=== PATIENT | male | born 1960 | race Caucasian/White ===

== ENCOUNTER → 2019-10-20 | Outpatient (CLI) | payer MEDICARE, OTHER ==
[~2019-10-20] MED LIST: APEDRA PO; APIDRA100 U/ML SUBQ; ASPIRIN EC81 M1 PO; ASPIRIN325 PO; ATORVASTATIN CA40 MG PO; BRILINTA60 MG PO; COREG25 MG PO; CYMBALTA30 MG PO; LANTUS100 UNIT/M SUBQ; LIPITOR 20 MG T20 M1 PO; NOVOLOG100 UNIT/1 SUBQ; PRINIVIL20 MG PO
--- NOTE | 2019-10-20 12:56 | 2DMMODE ---
[place] [address] 2 D/M-MODE ECHOCARDIOGRAM Name: JONO PETIT Room: [facility]#: [id number] Admission: 10/20/19 Attend Phys: Oracio Palomino, Discharge: Date of : 60 Date of Service: 10/20/19 1255 Report #: [id number] THIS REPORT FOR: //name// APPROVED REPORT Study performed: 10/20/2019 11:08:02 EXAM: Comprehensive 2D, Doppler, and color-flow Echocardiogram Patient Location: Out-Patient BSA: 2.21 HR: 69 bpm BP: 130/80 mmHg Other Information Study Quality: Good Indications CAD Hypertension/HDD 2D Dimensions IVSd: 20.64 (7-11mm) LVOT Diam: 20.80 (18-24mm) LVDd: 41.78 mm PWd: 11.40 (7-11mm) Ascending Ao: 35.83 (22-36mm) LVDs: 29.28 (25-40mm) Aortic Root: 31.68 mm Volumes Left Atrial Volume (Systole) LA ESV Index: 27.30 mL/m2 Aortic Valve AoV Peak Gabe.: 1.08 m/s AO Peak Gr.: 4.68 mmHg LVOT Max P.33 mmHg AO Mean Gr.: 2.73 mmHg LVOT Mean P.94 mmHg LVOT Max V: 1.04 m/s AO V2 VTI: 21.50 cm LVOT Mean V: 0.62 m/s EMI (VTI): 3.43 cm2 LVOT V1 VTI: 21.71 cm Mitral Valve E/A Ratio: 0.69 MV Decel. Time: 269.35 ms MV E Max Gabe.: 0.51 m/s MV PHT: 78.11 [place] [address] 2 D/M-MODE ECHOCARDIOGRAM Name: JONO PETIT Room: [facility]#: [id number] Admission: 10/20/19 Attend Phys: Oracio Palomino, Discharge: Date of : 60 Date of Service: 10/20/19 1255 Report #: [id number] MVA (PHT): 2.82 cm2 TDI E/Lateral E': 10.20 E/Medial E': 8.50 Medial E' Gabe.: 0.06 m/s Lateral E' Gabe.: 0.05 m/s Pulmonary Valve PV Peak Gabe.: 1.04 m/s PV Peak Gr.: 4.29 mmHg Tricuspid Valve RAP Estimate: 5.00 mmHg TR Peak Gr.: 29.45 mmHg RVSP: 34.45 mmHg PA Pressure: 34.45 mmHg Left Ventricle The left ventricle is normal size. akinesis noted of the distal anteroseptal wall and apex, and the base of the inferior wall There is normal left ventricular wall thickness. Left ventricular systolic function is moderately decreased. LVEF is 30-35%. Grade I - abnormal relaxation pattern. Right Ventricle The right ventricle is normal size. The right ventricular systolic function is normal. Atria The left atrium size is normal. The right atrium size is normal. Aortic Valve Aortic valve is mildly calcified. No aortic regurgitation is present. There is no aortic valvular stenosis. Mitral Valve The mitral valve is normal in structure. Mild mitral regurgitation. No evidence of mitral valve stenosis. Tricuspid Valve The tricuspid valve is normal in structure. Mild tricuspid regurgitation. Pulmonic Valve Pulmonic valve is not well visualized. There is no pulmonic [place] [address] 2 D/M-MODE ECHOCARDIOGRAM Name: DAMASOJONO Shawn Room: [facility]#: [id number] Admission: 10/20/19 Attend Phys: Oracio Palomino, Discharge: Date of : 60 Date of Service: 10/20/19 1255 Report #: [id number] Great Vessels The aortic root is normal in size. IVC is normal in size and collapses >50% with inspiration. Pericardium There is no pericardial effusion. <Conclusion> LVEF is 30-35%. akinesis noted of the distal anteroseptal wall and apex, and the base of the inferior wall Aortic valve is mildly calcified. Mild mitral regurgitation. <ELECTRONICALLY SIGNED> By: Eddy Weinstein MD, FACC 10/20/19 1255 1255 1255 Eddy Weinstein MD, FACC /INF
== END ==
LOC: M.CRD 10-15 14:00
DX: I08.1 Rheumatic disorders of both mitral and tricuspid valves (principal); I25.119 Atherosclerotic heart disease of native coronary artery with unspecified angina pectoris; I10 Essential (primary) hypertension